=== PATIENT | female | born 1995 | race Caucasian/White ===

== ENCOUNTER 2021-10-30 13:26 | Emergency (ER) | payer BC, SELFPAY ==
--- NOTE | ~2021-10-30 | XR_ITS ---
EXAMINATION: XR hand RT min 3V EXAM DATE: 10/30/2021 14:07 INDICATION: Punched A Wall X 2 Weeks Ago. Generalized Pain. TECHNIQUE: Right hand frontal, lateral and oblique projections obtained and reviewed. There is no pr ior study for comparison. FINDINGS: Right metacarpal bones are unremarkable. No periosteal reaction to suggest subacute fract ure. There are no acute fractures or dislocations identified. There is no subcutaneous gas. The sof t tissue is unremarkable. There are no radiopaque foreign bodies. IMPRESSION: 1. XR hand RT min 3V exam without acute osseous findings. Reviewed, dictated and finalized at location B. [place] [employer]
[2021-10-30 13:46] VITALS: BP 124/76; PULSE 95; RESP 16; TEMP 37.3; O2SAT 100
--- NOTE | 2021-10-30 14:00 | PC.NURSE ---
UPON TRIAGING PT,(PT PUNCHED A WALL) SHE IS VERY SHORT, IRRITABLE AND DID NOT WANT TO BE ASKED QUESTIONS. I APOLOGIZED TO PT AND INSTRUCTED HER THAT WE HAVE TO ASK THESE QUESTIONS, IT HAS TO GO IN THE CHART. PT REPLIED I JUST FEEL LIKE I APOLOGIZED AGAIN WHEN ASKING HER WHAT SHE HAD PUNCHED AND PT AGAIN WAS IRRITATED AND STATED A WALL . I THEN ASKED WHAT KIND OF WALL AND PT REPLIED WITH A IRRITATED RESPONSE A REGULAR HOUSE WALL
[2021-10-30 14:07] VITALS: BP 124/76; PULSE 95; RESP 16; TEMP 37.3; O2SAT 100
--- NOTE | 2021-10-30 14:28 | ED.GENADULT ---
HPI - General Adult General Chief complaint: Extremity Injury, Lower Stated complaint: Right Hand Injury Time Seen by Provider: 10/30/21 14:28 History of Present Illness HPI narrative: Patient presents with a 2-week old injury to her right hand. Patient states she punched a wall with her right hand about 2 weeks ago. Patient does not take anything for pain or discomfort. Patient states she continues to have pain with movement in her hand. Related Data Home Medications Medication Instructions Recorded Confirmed alprazolam 0.25 mg PO BID PRN 10/30/21 10/30/21 buspirone 15 mg PO TID 10/30/21 10/30/21 dextroamphetamine-amphetamine 10 mg PO BID 10/30/21 10/30/21 folic acid 1 mg PO DAILY 10/30/21 10/30/21 olanzapine 10 mg PO HS 10/30/21 10/30/21 omeprazole 40 mg PO BIDWMEAL 10/30/21 10/30/21 oxcarbazepine 150 mg PO BID 10/30/21 10/30/21 oxcarbazepine 300 mg PO BID 10/30/21 10/30/21 quetiapine 50 mg PO HS 10/30/21 10/30/21 sertraline 50 mg PO HS 10/30/21 10/30/21 venlafaxine 75 mg PO DAILY 10/30/21 10/30/21 Allergies Allergy/AdvReac Type Severity Reaction Status Date / Time No Known Allergies Allergy Verified 10/30/21 13:48 Review of Systems Review of Systems: CONSTITUTIONAL: Denies fever, chills, or sweats. EYES: Denies visual changes, redness, or discharge. ENT: Denies rhinorrhea, congestion, sore throat, or otalgia. CARDIOVASCULAR: Denies chest pain, palpitations, or edema. RESPIRATORY: Denies cough or dyspnea. GASTROINTESTINAL: Denies abdominal pain, nausea, vomiting, or diarrhea. GENITOURINARY: Denies dysuria or hematuria. SKIN: Denies rash or itching. MUSCULOSKELETAL: Denies back pain, joint pain, or myalgia. NEUROLOGIC: Denies headache, numbness, or weakness. PSYCHIATRIC: Denies anxiety or depression. [facility] Comments At time of signature, agree with nursing past medical, surgical, social and family history. There is no relevant family history pertinent to the presenting complaint Exam Narrative: GENERAL: Well-appearing, well-nourished, and in no acute distress. HEAD: Normocephalic, atraumatic. EYES: PERRLA and EOMI. ENT: Nares clear, no rhinorrhea or epistaxis. Mucous membranes moist. NECK: Supple. CHEST: Clear to auscultation. No respiratory distress. HEART: Regular rate and rhythm. No murmur heard. Normal peripheral pulses. ABDOMEN: Soft, nontender, nondistended, normal active bowel sounds. EXTREMITIES: Normal range of motion. No edema. HAND EXAM - Skin intact, no laceration, no swelling, no erythema, normal digit cascade with flexion of fingers, median nerve, ulnar nerve, radial nerve is intact. Normal sensation of each side of each finger, can perform `ok? sign, `cross over finger test of index and middle fingers? and `thumbs up? sign, normal thumb opposition, no scissoring. good capillary refill and radial pulse. normal flexion and extension of fingers and wrist. normal supination at wrist. Normal forearm and elbow exam. SKIN: Warm, dry, no rash. NEURO: No focal deficits. Alert and oriented x3. [place] Coma Scale Eye Opening: Spontaneous 4 [place] Coma Scale Motor: Obeys Commands 6 [place] Coma Scale Verbal: Oriented 5 [place] Coma Scale Total 15 Course Course Level of Care: Express Care Visit Vital Signs Vital signs: Vital Signs Temperature 37.3 C 10/30/21 13:46 Pulse Rate 95 10/30/21 13:46 Respiratory Rate 16 10/30/21 13:46 Blood Pressure 124/76 10/30/21 13:46 Pulse Oximetry 100 10/30/21 13:46 Temperature 37.3 C 10/30/21 14:07 Pulse Rate 95 10/30/21 14:07 Respiratory Rate 16 10/30/21 14:07 Blood Pressure 124/76 10/30/21 14:07 Pulse Oximetry 100 10/30/21 14:07 Addressed elevated BP today. Today's blood pressure higher than recommended range. 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 Currently patient denies headache, dizziness, vision changes, CP or shortness of breath. Critical dx conside
== END 2021-10-30 14:38 | disposition home or self-care (01) ==
PROVIDERS: Emergency Provider Nurse Practitioner Family
DX: S60.221A Contusion of right hand, initial encounter (principal); W22.09XA Striking against other stationary object, initial encounter; K21.9 Gastro-esophageal reflux disease without esophagitis; F41.9 Anxiety disorder, unspecified; F31.9 Bipolar disorder, unspecified; F98.8 Other specified behavioral and emotional disorders with onset usually occurring in childhood and adolescence
CPT/HCPCS: 73130; 99213; G0463

== ENCOUNTER → 2022-01-01 15:30 | Outpatient (CLI) | payer BC, SELFPAY ==
--- NOTE | ~2022-01-01 | XR_ITS ---
EXAMINATION: XR chest 2V DATE: 01/01/2022 15:49 INDICATION: Chronic cough. TECHNIQUE: Frontal and lateral views of the chest were obtained. COMPARISON: None. FINDINGS: The chest demonstrates clear lungs without pneumonia, pleural effusion, or pneumothorax. Th e heart size is normal. IMPRESSION: 1. No acute cardiopulmonary disease. Reviewed, dictated and finalized at location A.
== END ==
DX: R05.3 Chronic cough (principal)
CPT/HCPCS: 71046

== ENCOUNTER 2022-01-18 09:52 | Emergency (ER) | payer BC, SELFPAY ==
--- NOTE | ~2022-01-18 | CT_ITS ---
EXAMINATION: CT abdomen pelvis w con DATE: 01/18/2022 11:39 INDICATION: Epigastric and right upper quadrant abdominal pain. TECHNIQUE: Computed tomography (CT) of the abdomen and pelvis was performed with 100 mL Omnipaque-350 intravenous contrast. Automated exposure control and iterative reconstruction technique were employe d. The dose-length product was 263.76 mGy-cm. COMPARISON: None FINDINGS: Lung bases are clear. Heart size is normal. No pericardial or pleural effusion. Mild edematous gallbl adder wall thickening versus trace pericholecystic fluid with otherwise normal-appearing gallbladder. Minimal intrahepatic ductal or ductal dilation. Spleen, pancreas, bilateral adrenal glands and kidne ys are normal. Bowels including the appendix are normal. Bladder, anteverted uterus and bilateral adn exa are unremarkable with 1.5 cm left ovarian cyst versus dominant follicle. No free intraperitoneal gas or fluid. No pathologically enlarged abdominal or pelvic lymphadenopathy. Bones are unremarkable. IMPRESSION: 1. Nonspecific mild intrahepatic ductal or ductal dilation and mild edematous gallbladder wall thicke tomasz versus trace amount of pericholecystic fluid. Correlate with liver function tests. Reviewed, dictated and finalized at location B. IMPRESSION: 1. Nonspecific mild intrahepatic ductal or ductal dilation and mild edematous g allbladder wall thickening versus trace amount of pericholecystic fluid. Correl ate with liver function tests.
--- NOTE | ~2022-01-18 | US_ITS ---
IMPRESSION: 1. Nonspecific diffuse mild periportal edema throughout the liver which can be seen with congestive heart failure or secondary cardiac congestion, acute hepat itis, cholangitis and aggressive fluid resuscitation. 2. Increased portal venous pulsatility which can be seen with right heart failu re, tricuspid regurgitation or other cause of elevated right heart pressure. EXAMINATION: US abdomen limited DATE: 01/18/2022 12:06 INDICATION: Epigastric and right upper quadrant abdominal pain TECHNIQUE: Multiple grayscale and Doppler ultrasound images of the abdomen were obtained. COMPARISON: CT dated 01/18/2022 FINDINGS: The pancreatic head and body are normal in appearance. The pancreatic tail is not visualized. Increa sed renal echogenicity surrounding the portal veins consistent with periportal edema. This likely minoo cific a decreased enhancement on the portal veins seen on the prior CT which was incorrectly interpre vinnie as mild biliary ductal dilation. There is no intrahepatic biliary ductal dilation. Liver has othe rwise normal echogenicity and contour, with a smooth surface. No liver lesion identified. There is in creased portal venous pulsatility with vast majority of oral venous flow seen in the hepatopetal, nor mal direction but with minimal amount of flow reversal at end diastole. The gallbladder is normal in appearance with trace amount of pericholecystic fluid on one of the images. There is no cholelithias is. The common bile duct measures 2-3 mm, which is normal. Sonographic Escobedo sign was reported as ne gative by the terrazzo journeyman.Visualized portion of the right kidney demonstrates normal contour and echo genicity with no hydronephrosis. Visualized central hepatic veins and proximal inferior vena cava are normal. IMPRESSION: 1. Nonspecific diffuse mild periportal edema throughout the liver which can be seen with congestive h eart failure or secondary cardiac congestion, acute hepatitis, cholangitis and aggressive fluid resus citation. 2. Increased portal venous pulsatility which can be seen with right heart failure, tricuspid regurgit ation or other cause of elevated right heart pressure. Reviewed, dictated and finalized at location B.
[2022-01-18 10:28] LABS: Basophils Absolute Auto 0.1 K/mm3 (0.0-0.1); Eosinophils Absolute Auto 0.1 K/mm3 (0-0.3); Eosinophils Percent Auto 2.3 % (0-4.4); Hemoglobin 12.1 g/dL (12.0-15.0); Lymphocytes Absolute Auto 1.57 K/mm3 (0.9-3.2); Lymphocytes Percent Auto 27.3 % (18.3-44.2); Mean Corpuscular HGB Conc 31.8 g/dl (32-36); Mean Corpuscular Hemoglobin 29.2 pg (26-34); Mean Corpuscular Volume 91.8 fl (80-100); Mean Platelet Volume 10.4 fl (7.4-10.4); Monocytes Absolute Auto 0.4 K/mm3 (0.1-0.6); Monocytes Percent Auto 6.8 % (2.6-8.5); Neutrophils Absolute Auto 3.6 K/mm3 (1.3-6.7); Neutrophils Percent Auto 62.6 % (45.5-73.1); Platelet Count Result 229 k/mm3 (150-375); Red Blood Count 4.14 M/mm3 (4.2-5.4); Red Cell Distribution Width 14.6 % (11.5-14.5); White Blood Count 5.8 K/mm3 (4.5-10.0)
[2022-01-18 10:38] LABS: Alanine Aminotransferase 15 U/L (4-35); Albumin Level 4.3 g/dL (3.5-5.1); Alkaline Phosphatase 42 U/L (38-126); Anion Gap 9 mmol/L (8-16); Aspartate Amino Transferase 29 U/L (14-36); Bilirubin,Total 1.4 mg/dL (0.2-1.3); Blood Urea Nitrogen 10 mg/dL (7-17); Calcium 8.9 mg/dL (8.4-10.2); Carbon Dioxide 22 mmol/L (22-30); Chloride 108 mmol/L (98-107); Estimated CRCL calculation 90 ml/min; Estimated Glomerular Filt Rate > 60; Glucose 88 mg/dL (65-110); Lipase 99 U/L (23-300); Potassium 3.6 mmol/L (3.4-5.0); Sodium 139 mmol/L (137-145)
[2022-01-18 10:38] LABS: Add Urine Microscopic? YES; Appearance Urine Clear (Clear); Bilirubin Urine Negative (Negative); Blood Urine Negative (Negative); Color Urine Yellow (Yellow); Glucose Urine UA Negative (Negative); Ketones Urine 1+ mg/dL (Negative); Leukocyte Esterase Ur Negative LEU/UL (Negative); Mucus Urine Rare /lpf; Nitrate Urine Negative (Negative); Protein Urine Negative (Negative); Squamous Epithelial Cell Urine Moderate /hpf (Few); Urobilinogen Urine Negative mg/dL (<2.0); WBC Urine 0-3 /hpf
--- NOTE | 2022-01-18 11:21 | ED.ABDPAIN ---
HPI - Abdominal Pain General Chief Complaint: Abdominal Pain Stated Complaint: abd pain Time Seen by Provider: 01/18/22 10:13 Source: patient Mode of arrival: ambulatory Limitations: no limitations History of Present Illness HPI narrative: 26 y/o female presents to the ER today for problems with epigastric and RUQ abdominal pain. She says that symptoms started about a month ago but she is much worse over the past couple of days. She says that she is never pain free. Pain is worse after eating. She has had occasional nausea and vomiting. No nausea right now. She says that she gets diarrhea often about every other day. She had similar episode about a year ago but nothing was ever found. She had endoscopy. She says that her gallbladder has not been evaluated that she is aware of. She take PPI for her stomach. She has not had any fever or chills. Related Data Home Medications Medication Instructions Recorded Confirmed alprazolam 0.25 mg PO BID PRN 10/30/21 10/30/21 buspirone 15 mg PO TID 10/30/21 10/30/21 dextroamphetamine-amphetamine 10 mg PO BID 10/30/21 10/30/21 folic acid 1 mg PO DAILY 10/30/21 10/30/21 olanzapine 10 mg PO HS 10/30/21 10/30/21 omeprazole 40 mg PO BIDWMEAL 10/30/21 10/30/21 oxcarbazepine 150 mg PO BID 10/30/21 10/30/21 oxcarbazepine 300 mg PO BID 10/30/21 10/30/21 quetiapine 50 mg PO HS 10/30/21 10/30/21 sertraline 50 mg PO HS 10/30/21 10/30/21 venlafaxine 75 mg PO DAILY 10/30/21 10/30/21 Allergies Allergy/AdvReac Type Severity Reaction Status Date / Time No Known Allergies Allergy Verified 01/18/22 10:03 Review of Systems Constitutional: Constitutional: Denies chills, Denies fever(s) and Denies weakness Eyes: Eyes: Reports no additional eye complaints ENT: Denies dysphagia, Denies dizziness, Denies nasal congestion and Denies sore throat Cardiovascular: Cardiovascular: Reports no additional cardiovascular complaints, Denies chest pain and Denies radiating jaw, neck or arm pain Respiratory: Respiratory: Reports no additional respiratory complaints, Denies cough and Denies dyspnea Gastrointestinal: Gastrointestinal: Reports abdominal pain, Reports diarrhea, Reports nausea and Reports vomiting Genitourinary: Genitourinary: Denies hematuria, Denies nocturia, Denies dysuria and Denies flank pain Musculoskeletal: Musculoskeletal: Denies back pain, Denies myalgias and Denies arthralgias Integumentary/Breasts: Skin/Breast: Denies rash Neurologic: Denies dizziness Psychiatric: Psychiatric: Denies anxiety and Denies depression Hematologic/Lymphatic: Hematologic/Lymphatic: Reports no additional hematologic/lymphatic complaints Allergic/Immunologic: Allergic/Immunologic: Reports no additional allergic/immunologic complaints Exam Const: General: no acute distress Orientation/consciousness: patient oriented x3 HENMT: Head: normal to inspection Eyes: Conjunctivae: conjunctival abnormality Neck: Neck: normal visual inspection Chest: Chest palpation & inspection: normal inspection of the chest Resp: Effort & Inspection: normal respiratory effort Auscultation: clear to auscultation bilaterally Cardio: Rate: regular rate Rhythm: regular rhythm GI: GI Palp: Yes Soft to palpation, Yes Tenderness to palpation present (GI) (RUQ ) and Yes Guarding due to palpation present (GI) : General: Yes no CVA tenderness Skin: General skin exam: normal color Neuro: General: patient oriented x3 and moves all extremities Extrem: General: normal to inspection Psych: Mental Status: mental status grossly normal Affect: normal affect Course Course Emergency Course: 1315 I spoke with general surgery, Dr. Nettles regarding this patient. He will come to see the patient when he finishes the case that he is in. 1350 Dr. Nettles has seen and evaluated patient in the ER. He feels patient is okay for discharge to home. He plans put her on the OR for Saturday for cholecystectomy. He would like me to give her cipro and s
[2022-01-18 12:34] VITALS: BP 136/84; PULSE 74; RESP 16; O2SAT 99
--- NOTE | 2022-01-18 13:53 | PM.CNGS ---
Assessment and Plan Assessment and plan (1) Acute cholecystitis: Code(s): K81.0 - Acute cholecystitis Status: Acute Assessment and Plan: history and imaging c/w diagnosis, pain now well controlled, plan to do urgent cholecystectomy early next week, ok to dc home c pain meds, abx, low fat diet History of Present Illness Consult details Consult date: 01/18/22 Reason for consult: abdominal pain Requesting physician: Veda Rodgers APRN Narrative: Pt is a 26 y/o F presenting to ED c/o severe epigastric/RUQ abd pain. Pt reports pain is associated c N/V, bloating, diarrhea. Pt reports pain is worse with eating, christina fried, fatty foods. Pt states sx for over a year but episodes now more frequent and severe. Pt reports FH of biliary dz requiring cholecystectomy. Review of Systems Constitutional: Constitutional: Reports anorexia, Denies chills, Reports fatigue, Denies fever(s), Denies headache(s), Reports lethargy, Denies malaise, Reports poor appetite, Denies weakness, Denies weight gain and Denies weight loss Eyes: Eyes: Reports no additional eye complaints ENT: Reports system reviewed and no additional complaints, except as documented Cardiovascular: Cardiovascular: Reports no additional cardiovascular complaints Respiratory: Respiratory: Reports no additional respiratory complaints Gastrointestinal: Gastrointestinal: Reports as per HPI, Reports abdominal pain, Reports bloating, Reports heartburn, Reports diarrhea, Reports nausea and Reports vomiting Genitourinary: Genitourinary: Reports no additional female genitourinary complaints Musculoskeletal: Musculoskeletal: Reports no additional musculoskeletal complaints Integumentary/Breasts: Skin/Breast: Reports system reviewed and no additional complaints, except as docu Neurologic: Reports system reviewed and no additional complaints, except as documented Psychiatric: Psychiatric: Reports no additional psychiatric complaints Endocrine: Endocrine: Reports no additional endocrine complaints Hematologic/Lymphatic: Hematologic/Lymphatic: Reports no additional hematologic/lymphatic complaints Allergic/Immunologic: Allergic/Immunologic: Reports no additional allergic/immunologic complaints PMFSH Comments PMH - depression, Bipolar, GERD Surgical - no abd surgeries FH - biliary dz SH - denies ETOH, tobacco Meds Home Medications and Allergies Home Medications Medication Instructions Recorded Confirmed Type alprazolam 0.25 mg PO BID PRN 10/30/21 10/30/21 History buspirone 15 mg PO TID 10/30/21 10/30/21 History dextroamphetamine-amphetamine 10 mg PO BID 10/30/21 10/30/21 History folic acid 1 mg PO DAILY 10/30/21 10/30/21 History olanzapine 10 mg PO HS 10/30/21 10/30/21 History omeprazole 40 mg PO BIDWMEAL 10/30/21 10/30/21 History oxcarbazepine 150 mg PO BID 10/30/21 10/30/21 History oxcarbazepine 300 mg PO BID 10/30/21 10/30/21 History quetiapine 50 mg PO HS 10/30/21 10/30/21 History sertraline 50 mg PO HS 10/30/21 10/30/21 History venlafaxine 75 mg PO DAILY 10/30/21 10/30/21 History Allergies Allergy/AdvReac Type Severity Reaction Status Date / Time No Known Allergies Allergy Verified 01/18/22 10:03 Vital Signs Vital Signs - 24 hr 01/18/22 12:34 Pulse Rate 74 Respiratory Rate 16 Blood Pressure 136/84 Pulse Oximetry 99 Exam Const: General: cooperative, comfortable and no acute distress Nutritional Appearance: average body habitus Orientation/consciousness: patient oriented x3 Limitations: no limitations HENMT: Head: normal to inspection, normocephalic and atraumatic Ears: hearing grossly normal bilaterally General nose exam: Normal external nose present Face and sinus: normal facial exam Mouth: Yes Normal oral and palatal mucosa present Eyes: General: appearance normal, both eyes and all related structures Pupils: Equal, round and reactive pupils present EOM: EOMs intact bilaterally Neck: Neck: normal visual inspection, f
[2022-01-18 14:25] VITALS: BP 136/80; PULSE 74; RESP 16; O2SAT 98
== END 2022-01-18 14:26 | disposition home or self-care (01) ==
PROVIDERS: Emergency Medicine; Emergency Provider Nurse Practitioner Family
DX: K81.0 Acute cholecystitis (principal); F31.9 Bipolar disorder, unspecified; K21.9 Gastro-esophageal reflux disease without esophagitis; R93.2 Abnormal findings on diagnostic imaging of liver and biliary tract
CPT/HCPCS: 36415; 74177; 76705; 80053; 81001; 81025; 83690; 85025; 99284; Q9967

== ENCOUNTER 2022-01-22 02:30 | Day surgery (SDC) | payer BC, SELFPAY ==
--- NOTE | 2022-01-19 12:28 | PC.NURSE ---
Report to the Outpatient Waiting Room, entrance under the green pavilion located off [facility], at time 730 on date 01/22/2022 OR Time:930 - You and your visitor will be asked a series of questions to screen for COVID 19 for your protection. - Only one visitor is allowed at this time. - The patient visitor is requested to leave or wait in car when not with patient. - A mask is required within the hospital. Patients may have clear liquids (water, carbonated beverages, clear teas, apple juice) until 3 hours prior to surgery with a maximum of 20 ounces. - No food from midnight until time of surgery - Infants may have breast milk until 4 hours before surgery, infant formula 6 hours prior to surgery. - Children will be allowed to drink immediately following surgery. If applicable, please bring a bottle or sippy cup to assist with drinking. Juice, water, soda, and popsicles are readily available. For infants on formula, please bring formula the day of surgery. Pacifiers are allowed. Take the following medications with a SIP of water the morning of surgery: Cipro, hydrocodone/tylenol if needed, xanax and lamictal Medications to discontinue per physician ___NA Date to take last dose Please no make-up, nail english, hairspray, perfume, deodorant, or body powder the day of surgery. No jewelry (including any body piercings) or valuables the day of surgery, leave them at home. Please take a shower or bath the night before, or the morning of, surgery with an antibacterial soap. Wear comfortable, loose fitting clothing. Children are encouraged to wear pajamas. - Jewelry must be removed prior to entering the operating room. Rings and piercings that are not removed may be cut off. - The hospital will not accept responsibility for valuables. - Please leave all valuables, including medications, at home the day of surgery. If you are going home after surgery, a licensed van driver helper must drive you home. - NO public transportation without another adult. - We recommend that an adult stay with you for 24 hours following discharge. - We also recommend that you do not drive, make important decision, drink alcoholic beverages, or take any drugs that were not prescribed by your health care provider for at least 24 hours after your discharge time. For Pediatric surgeries, we recommend two adults accompany the child home (only one inside the building at this time). Follow any additional instructions given to you from your surgeon. If you or anyone in your household have experienced Covid symptoms in the past week, please notify your surgeon or the nurse liaison at the phone number below for possible testing. Telephone instructions given to patient Sharmin and asked if any additional questions and then verbalized understanding. Patient advised to call surgeon office or pre surgery nurse liaison [phone] if any additional questions.
[2022-01-19 12:44] VITALS: BMI 21.4
[2022-01-22] VITALS (9 sets, daily range): BP systolic 99–129; BP diastolic 50–89; PULSE 52–94; RESP 12–18; TEMP 36.1–37.1; O2SAT 100
[2022-01-22] MEDS: ACETAMINOPHEN 500 MG TABLET 1000 MG PO (07:59)
--- NOTE | 2022-01-22 07:59 | P.PNAN_ITS ---
Anes - Initial Pre Proc Eval Procedure: Operation Date: 01/22/22 09:30 Proposed Procedures p Laparoscopic Cholecystectomy - Carmen Nettles MD Date/Time: 01/22/22 07:59 Surgeon: Carmen Nettles MD Pre Op Diagnosis: acute cholecystitis Patient Data Age: 26 Gender: F Height: 1.63 m Weight: 57.4 kg Last Vital Signs Temp 37.1 C 01/22/22 07:54 Pulse 76 01/22/22 07:54 Resp 16 01/22/22 07:54 BP 107/69 01/22/22 07:54 Pulse Ox 100 01/22/22 07:54 Allergies Allergy/AdvReac Type Severity Reaction Status Date / Time No Known Allergies Allergy Verified 01/22/22 07:40 Home Medications Medication Instructions Recorded Confirmed Type alprazolam 0.25 mg PO BID PRN 10/30/21 01/19/22 History omeprazole 40 mg PO BIDWMEAL 10/30/21 01/19/22 History hydrocodone-acetaminophen 1 tablet PO Q6H PRN #14 tablet 01/18/22 01/19/22 Rx lamotrigine [Lamictal ODT Starter 50 ea PO DAILY 01/19/22 01/19/22 History ([place])] Patient hx anesthesia problems: none Family hx anesthesia problems: none Results Review: All pre-operative results and documents have been reviewed as part of the pre-operative evaluation. [facility] Past Medical History Medical History Anxiety Depression GERD (gastroesophageal reflux disease) Social History Social History Tobacco type: e-cigarettes/vaping Substance use type: marijuana Last use: daily Living arrangements: with friend(s) Spiritual care concerns: No Anes - Eval Final PreProcedure Day of Procedure 01/22/22 07:59 Patient weight: normal Heart: regular rate and rhythm Lungs: clear to auscultation Airway: Mallampati scale class II Neurological: alert and oriented Last oral intake: >/= 8 hours ASA classification: II Emergent: no Anesthetic plan: proceed Anesthesia type and monitoring: general ETT and standard monitoring Results Review: All pre-operative results and documents have been reviewed as part of the pre-operative evaluation. Informed Consent: The patient's anesthetic plan and its attendant risks and benefits were discussed with the patient/family/POA. Questions were solicited and answers provided to the satisfaction of the patient/family/POA.
[2022-01-22] MEDS: KETOROLAC 15 MG/ML VIAL (*BKC) IV PUSH (08:16)
[2022-01-22] MEDS: LACTATED RINGERS 1,000 ML 30 ML IV CONT (08:16)
[2022-01-22 08:24] LABS: Alanine Aminotransferase 15 U/L (4-35); Albumin Level 4.7 g/dL (3.5-5.1); Alkaline Phosphatase 39 U/L (38-126); Amylase 72 U/L (30-110); Aspartate Amino Transferase 25 U/L (14-36); Bilirubin,Total 1.3 mg/dL (0.2-1.3); Lipase 77 U/L (23-300)
[2022-01-22] MEDS: ceFAZolin 2 GM/D5W 50 ML 2 GM/50 ML BAG IVPB (09:26)
[2022-01-22] MEDS: diazePAM INJ (*CRX) 10 MG/2 ML SYRINGE 2.5 MG IV PUSH (10:19)
[2022-01-22] MEDS: fentaNYL CITRATE INJ (*CRX) 100 MCG/2 ML VIAL 25 MCG IV PUSH ×8 (10:22→11:06)
--- NOTE | 2022-01-22 10:22 | P.OP_ITS ---
Procedure Note - Detailed Date of Procedure 01/22/22 Pre-op Diagnosis acute cholecystitis Post-op Diagnosis Same Procedure Performed Laparoscopic cholecystectomy Surgeon Carmen Nettles MD Anesthesia General Indications 26 y/o F presenting to ED c acute cholecystitis Findings cholecystitis Description of Procedure The patient was taken to the operating room placed in the supine position. After adequate induction of general anesthesia, the patient was prepped and draped in normal sterile fashion. A time-out was then performed to verify the patient's identity as well as the procedure being performed. I then made a 5 mm incision in the infraumbilical region. Through this, a Veress needle was placed into the peritoneal cavity and CO2 gas was then insufflated. After adequate pneumoperitoneum was achieved, the Veress needle was removed and a 5 mm optiview trocar was placed through this incision under direct visualization. I then placed the laparoscope through this trocar site and under direct visualization placed a further 12 mm subxiphoid port as well as 2 additional 5 mm ports in the right upper abdomen. The gallbladder was then identified and was noted to be moderately inflamed and distended. I was able to place a grasper at the dome of the gallbladder and this was retracted anterior and cephalad up over the liver. A 2nd retractor was then placed at the infundibulum and retracted lat erally, this allowed visualization of the triangle of Calot. I then was able to visualize the cystic duct in its entirety from its proximal insertion into the gallbladder, to its distal junction with the common hepatic/common bile duct junction. At this point, I carefully skeletonized the proximal cystic duct with the [place] dissector. I then clipped and transected the proximal cystic duct. Next I visualized the cystic artery. Again the artery was skeletonized, clipped, and transected. I then used the Bovie cautery to take down the peritoneal attachments of the gallbladder off the liver bed. Once the gallbladder specimen was completely detached, an endo-pouch was placed through the 12 mm port site. I then placed the gallbladder specimen into the Endo pouch and removed the endo-pouch from the 12 mm port site. The specimen will now be sent to pathology for further review. I then copiously irrigated the right upper quadrant. Some mild oozing was noted in the liver bed and this was controlled with the bovie cautery. Hemostasis was noted in the liver bed, the clips were noted to be in good position on both the cystic duct stump and the cystic artery stump. No other pathology was noted in the right upper quadrant. I then moved the laparoscope to the subxiphoid port. No iatrogenic injury or other pathology was noted in the lower abdomen. I then closed the 12 mm trocar site under direct visualization using the Nas cone and 0 Vicryl suture. At this point, the abdomen was desufflated and all ports removed. All port sites were then closed with 4.O Monocryl subcuticular sutures. Dermabond was placed on each incision. The patient tolerated the procedure well, was extubated in the operating room postoperative and will be transferred to the recovery room in stable condition Estimated Blood Loss 5 Drains No Packing No Pathology Yes Complications No immediate complications Condition Stable Disposition PACU
[2022-01-22] MEDS: oxyCODONE HCL (*CRX) 5 MG TAB IR PO (11:36)
--- NOTE | 2022-01-22 11:48 | SUR.PHASEII ---
Patient extremely anxious, offered medication for anxiety but patient declined. States she wants out of here as soon as possible, like right now and declines further medication again. Patient educated on relaxation/breathing techniques, not receptive to teaching. Patient friend Dana present for discharge instructions and understands.
== END 2022-01-22 11:57 | disposition home or self-care (01) ==
PROVIDERS: Visit Provider Surgery
PROC: 0FT44ZZ Resection of Gallbladder, Percutaneous Endoscopic Approach (ICD-10-PCS; CPT 47562; principal; 2022-01-22 09:30)
DX: K81.1 Chronic cholecystitis (principal); R10.13 Epigastric pain; R19.7 Diarrhea, unspecified; R11.2 Nausea with vomiting, unspecified; R10.11 Right upper quadrant pain; R14.0 Abdominal distension (gaseous); F41.8 Other specified anxiety disorders; K21.9 Gastro-esophageal reflux disease without esophagitis; F12.90 Cannabis use, unspecified, uncomplicated; F17.290 Nicotine dependence, other tobacco product, uncomplicated; F31.9 Bipolar disorder, unspecified
CPT/HCPCS: 47562; 36415; 80076; 82150; 83690; 86850; 86900; 86901; 88304; A9270; J0690; J1100; J1885; J2250; J2270; J2370; J2405; J2704; J3010; J3360; J7030; J7120

== ENCOUNTER 2022-02-03 12:06 | Emergency (ER) | payer BC, SELFPAY ==
[2022-02-03 12:13] VITALS: BP 132/68; PULSE 96; RESP 28; TEMP 37.2; O2SAT 100
--- NOTE | 2022-02-03 12:36 | ED.URI ---
HPI - URI/Sore Throat General Chief Complaint: Upper Respiratory Infection Stated Complaint: Ear Pain/Sore Throat Time Seen by Provider: 02/03/22 12:52 Source: patient and RN notes reviewed Mode of arrival: ambulatory Limitations: no limitations History of Present Illness HPI Narrative: 26-year-old female presents concern for ongoing upper respiratory symptoms such as ear discomfort, sore throat, and noticed she had a white spot on her throat. She reports she has had the symptoms going on for several months, she has been on a round of doxycycline and a round of azithromycin without relief. She reports she recently had a cholecystectomy 2 weeks ago, and has had trouble getting into see her primary to evaluate the symptoms. Her primary doctor office suggested she be seen in urgent care. She denies fever, body aches, chills, sweats, cough, shortness of breath. Reports she takes Claritin daily, denies any other [id number] intervention MD elicited complaint: sore throat Related Data Home Medications Medication Instructions Recorded Confirmed alprazolam 0.5 mg PO TID 02/03/22 02/03/22 lamotrigine [Lamictal ODT Starter See Rx Instructions .ROUTE .COMPLEX 02/03/22 02/03/22 ([place])] Allergies Allergy/AdvReac Type Severity Reaction Status Date / Time No Known Allergies Allergy Verified 02/03/22 13:08 Review of Systems Review of Systems: CONSTITUTIONAL: Denies malaise, chills, sweats, or fever. EYES: Denies visual changes, redness, or discharge. ENT: Reports rhinorrhea, congestion, ear fullness and sore throat. CARDIOVASCULAR: Denies chest pain, palpitations, or edema. RESPIRATORY: Denies cough. Denies dyspnea. GASTROINTESTINAL: Denies abdominal pain, nausea, vomiting, diarrhea SKIN: Denies rash or itching. MUSCULOSKELETAL: Denies myalgia. NEUROLOGIC: Denies headache. All systems reviewed & are unremarkable except as noted in HPI and below PMFSH Past Medical History Medical History Anxiety Depression GERD (gastroesophageal reflux disease) Social History Social History Tobacco type: e-cigarettes/vaping Substance use type: marijuana Last use: daily Spiritual care concerns: No Comments At time of signature, agree with nursing past medical, surgical, social and family history. There is no relevant family history pertinent to the presenting complaint Exam Narrative: GENERAL: Well-appearing, well-nourished, and in no acute distress. HEAD: Normocephalic EYES: PERRLA, conjunctivae clear ENT: Nares clear, clear discharge. Mucous membranes moist. TM pearly bee with sharp light reflex bilaterally; no tragal tenderness. Oropharynx not erythematous with 1 small white papule on the left tonsil. Tonsils not enlarged and without exudate, no drooling, no hoarseness, no trismus, uvula midline. NECK: Supple. No lymphadenopathy CHEST: Clear to auscultation, breath sounds equal. No wheezing, rhonchi, rales, or stridor. No respiratory distress, speaks in full sentences. HEART: Regular rate and rhythm. No murmur heard. SKIN: Warm, dry, no rash. NEURO: Alert and oriented x3. PSYCH: Normal mood and affect Course Course Emergency Course: Patient is aware of diagnosis, understands and agrees to treatment plan. Anticipatory guidance given. Patient agrees to follow-up as directed and is aware of reasons to seek care at the emergency department. Portions of this record may have been created with voice recognition software Level of Care: Express Care Visit Vital Signs Vital signs: Vital Signs Temperature 99 F 02/03/22 12:13 Pulse Rate 96 02/03/22 12:13 Respiratory Rate 28 H 02/03/22 12:13 Blood Pressure 132/68 02/03/22 12:13 Pulse Oximetry 100 02/03/22 12:13 Temperature 99 F 02/03/22 12:13 Pulse Rate 96 02/03/22 12:13 Respiratory Rate 28 H 02/03/22 12:13 Blood Pressure 132/68 05
[2022-02-03 13:10] LABS: Glucose Point of Care 95 mg/dl (65-105)
== END 2022-02-03 13:30 | disposition home or self-care (01) ==
PROVIDERS: Emergency Provider Nurse Practitioner
DX: J02.9 Acute pharyngitis, unspecified (principal); F17.290 Nicotine dependence, other tobacco product, uncomplicated; F12.90 Cannabis use, unspecified, uncomplicated; K21.9 Gastro-esophageal reflux disease without esophagitis; F41.9 Anxiety disorder, unspecified; F32.A Depression, unspecified
CPT/HCPCS: 36416; 82948; 86308; 87081; 87880; 99213; G0463